=== PATIENT | male | born 1955 | race Caucasian/White ===

== ENCOUNTER 2017-11-10 10:30 | Emergency (ER) | payer OTHER ==
--- NOTE | 2017-11-10 10:52 | EDPHY ---
H & P Stated Complaint: fell off ladder 2 steps last night L ankle pain Time Seen by Provider: 11/10/17 10:50 HPI/ROS: CHIEF COMPLAINT: Left foot and ankle pain, bilateral wrist pain post falling off of a stepladder HISTORY OF PRESENT ILLNESS: 62-year-old male with no anticoagulant use history states that last evening at 9:30 p.m. he used a small step ladder to fix the garage door light bulb, slipped off and fell onto his left side. He denies head injury. He is complaining of bilateral wrist and left foot and ankle pain. He is unable to bear full weight. He had to hobble to his vehicle with assistance of his . No nausea or vomiting. No midline C-spine pain. No peripheral paresthesia, weakness, numbness. PRIMARY CARE PROVIDER: REVIEW OF SYSTEMS: A ten point review of systems was performed and is negative with the exception of the items mentioned in the HPI PAST MEDICAL/SURGICAL HISTORY: no anticoagulant use, history of liver transplant February 2017 SOCIAL HISTORY: . Lives in a single level home. PHYSICAL EXAM 1) GENERAL: Well-developed, well-nourished, alert and oriented. Appears to be in no acute distress. Answering questions appropriately. 2) HEAD: Normocephalic, atraumatic 3) HEENT: Pupils equal, round, reactive to light bilaterally. Negative Horners. Nasopharynx, oropharynx, clear. No deformity or angulation of nose. No septal hematoma. No rhinorrhea. No oral trauma. Ears bilaterally with normal tympanic membranes. No hemotympanum. No fluid or blood in the external auditory canal. No raccoon eyes. No Buckley sign. Teeth are normally aligned with no gross malocclusion, TMJ bilaterally nontender, facial bones nontender including the zygomatic arch, maxilla mandible. 4) NECK: No cervical collar is on. Posterior cervical spine is nontender, no stepoff, no effusion. Full range of motion which does not elicit any midline cervical spine pain, no posterior midline tenderness, no step-off. 5) LUNGS: Clear to auscultation bilaterally, no wheezes, no rhonchi, no retractions. No obvious signs of trauma. No chest wall pain. No flaring, no grunting. Moving symmetrically. No crepitus. 6) HEART: [Regular rate and rhythm, 7) ABDOMEN: No guarding, no rebound, no focal tenderness, no peritoneal signs, no signs of trauma, no ecchymosis 8) MUSCULOSKELETAL: Moving all extremities, no focal areas of tenderness, no obvious trauma. 9) BACK: No midline vertebral tenderness, no fluctuance, no step-off, no obvious trauma, no visual or palpable abnormality. 10) SKIN: No laceration. No abrasion DIFFERENTIAL DIAGNOSIS: In no particular order including but limited to fracture, sprain, strain - Medical/Surgical History Hx Asthma: No Hx Chronic Respiratory Disease: No Hx Diabetes: No Hx Cardiac Disease: No Hx Renal Disease: No Hx Cirrhosis: No Hx Alcoholism: Yes Hx HIV/AIDS: No Hx Splenectomy or Spleen Trauma: No Other PMH: Liver transplant 02/17 - Social History Smoking Status: Never smoked Constitutional: Initial Vital Signs Temperature (C) 37.0 C 11/10/17 10:39 Heart Rate 92 11/10/17 10:39 Respiratory Rate 16 11/10/17 10:39 Blood Pressure 157/100 H 11/10/17 10:39 O2 Sat (%) 100 11/10/17 10:39 O2 Delivery Mode Room Air Allergies/Adverse Reactions: No Known Allergies Allergy (Unverified 10/15/09 13:15) Home Medications: Medication Instructions Recorded Aspirin 81mg (*) 11/10/17 Lexapro 11/10/17 Prograf 11/10/17 oxyCODONE/APAP 5/325 [Percocet 1 tab PO Q6 #10 tab 11/10/17 5/325] Medical Decision Making - Diagnostics Imaging Results: Imaging Impressions Ankle X-Ray 11/10/17 10:42 Impression: 1. Impacted, comminuted left calcaneal fracture. 2. Oblique distal fibular lateral malleolar fracture. Wrist X-Ray 11/10/17 10:46 Impression: Dorsal triquetral fracture. Wrist X-Ray 11/10/17 10:46 Impression: Dorsal triquetral fracture. Findings and recommendations discussed with Emergency Department physician, PENNY PANIAGUA at 11:14 hour, 11/10/2017. Final report concurs with initial preliminary interpretation. Foot X-Ray 11/10/17 10:50 Impression: Comminuted, impacted left calcaneus fracture. Extremity CT 11/10/17 11:10 Impression: 1. Comminuted, impacted left calcaneus fracture with fractures extending to the calcaneocuboid joint space and anterosuperior subtalar joint space. 2. Tiny distal fibular fracture. Images reviewed myself Procedures: Procedure: Splint A left lower extremity 3 way short-leg Ortho Glass splint and bilateral wrist Velcro volar splints were applied by ER apprentice technician. After application of the splints I returned and re-examined the patient. The splints were adequately immobilizing the joints and distal to the splint the patient's circulation and sensation were intact. Patient shows no signs of compartment syndrome. Was given orthopedic precautions. ED Course/Re-evaluation: 1:00 p.m. Patient was re-evaluated with serial examinations. I discussed his imaging results with him showing bilateral triquetrum fracture and calcaneal fracture. He will necessitate bilateral upper extremity splinting and lower extremity splinting. We discussed admission. He would like to attempt crutch walking and is declining admission at this time. 2:39 p.m.: Phone consultation with Dr. Cosmo Horton orthopedics who reviewed the patient's images remotely. The patient has been observed ambulating with crutches and nonweightbearing on the affected extremity including with bilateral volar wrist splints in place. The patient does not want to be admitted although this has been offered to him on numerous instances. Dr. Cosmo Horton recommend follow up with Dr. Charles Whaley. If any point the patient does not feel is able to care for himself recommend he return to the ER. On initial and on repeat exams he has no evidence of compartment syndrome. He has been given this precaution however. I saw this patient independently based on established practice protocols. Care of patient under supervision of secondary supervising physician Dr Paniagua with whom I discussed case. - Data Points Medications Given: Discontinued Medications Oxycodone/Acetaminophen (Percocet 5/325) 1 tab PO EDNOW ONE Stop: 11/10/17 11:10 Last Admin: 11/10/17 14:38 Dose: 1 tab Oxycodone/Acetaminophen (Percocet 5/325) 1 tab PO EDNOW ONE Stop: 11/10/17 14:34 Last Admin: 11/10/17 14:41 Dose: 1 tab Departure - Departure Disposition: Home, Routine, Self-Care Clinical Impression: Bilateral triquetrum fracture Calcaneus fracture, left Qualifiers: Encounter type: initial encounter Calcaneus location: body Fracture type: closed Fracture alignment: displaced Qualified Code(s): S92.012A - Displaced fracture of body of left calcaneus, initial encounter for closed fracture Fall from ladder Qualifiers: Encounter type: initial encounter Qualified Code(s): W11.XXXA - Fall on and from ladder, initial encounter Condition: Good Instructions: Wrist Fracture in Adults (ED), Foot Fracture in Adults (ED) Additional Instructions: Return to the ER immediately if you experience discoloration, have worsening pain, numbness, tingling, or any other symptoms that concern you. If you received x-rays in the emergency department today, be advised, that ligamentous , tendon, muscular, and other non-bony injury cannot be fully ruled out. Try to keep your affected extremity elevated above the level of your chest, and keep cold packs on the affected area, for the next 48 hours. Referrals: Charles Whaley MD [Medical Doctor] - 1-2 days without fail Prescriptions: oxyCODONE/APAP 5/325 [Percocet 5/325] 1 tab PO Q6 #10 tab
[2017-11-10] MEDS: OXYCODONE/APAP 5/325 TAB PO ONE ×2 (11:11→14:38)
[2017-11-10] MEDS ORDERED: OXYCODONE/APAP 5/325 TAB PO ONE (14:33)
[2017-11-10 15:13] VITALS: BP 150/96
== END 2017-11-10 15:13 | disposition home or self-care (01) ==
DX: S92.012A Displaced fracture of body of left calcaneus, initial encounter for closed fracture (principal); S62.114A Nondisplaced fracture of triquetrum [cuneiform] bone, right wrist, initial encounter for closed fracture; S62.115A Nondisplaced fracture of triquetrum [cuneiform] bone, left wrist, initial encounter for closed fracture; Z79.82 Long term (current) use of aspirin; W11.XXXA Fall on and from ladder, initial encounter; Y92.89 Other specified places as the place of occurrence of the external cause; Y99.8 Other external cause status; Y93.89 Activity, other specified
CPT/HCPCS: L3908